=== PATIENT | female | born 1975 | race Caucasian/White ===

== ENCOUNTER → 2017-08-30 | Outpatient (CLI) | payer BC ==
[2006-07-26 07:13] VITALS: PULSE 72; TEMP 97.3
== END ==
LOC: MC.RAD 13:07
DX: Z12.31 Encounter for screening mammogram for malignant neoplasm of breast (principal); N63.11 Unspecified lump in the right breast, upper outer quadrant

== ENCOUNTER → 2017-09-09 | Outpatient (CLI) | payer BC ==
[2006-07-26 07:13] VITALS: PULSE 72; TEMP 97.3
== END ==
LOC: MC.RAD 09:30
DX: N63.11 Unspecified lump in the right breast, upper outer quadrant (principal)

== ENCOUNTER → 2017-09-21 | Outpatient (CLI) | payer BC ==
[2006-07-26 07:13] VITALS: PULSE 72; TEMP 97.3
== END ==
LOC: MC.RAD 09:48
DX: N63.11 Unspecified lump in the right breast, upper outer quadrant (principal)

== ENCOUNTER 2022-09-29 06:47 | Day surgery (SDC) | payer BC ==
[~2022-09-29] VITALS: Ht 160 cm; Wt 69.4 kg
[2022-09-29 07:34] VITALS: BP 87/51; PULSE 57; TEMP 97.5
[2022-09-29] MEDS ORDERED: HCTZ 25MG TAB25 MG PO (07:39)
[2022-09-29] MEDS ORDERED: ONE-A-DAY ESSE1 EACH PO (07:39)
[2022-09-29] MEDS ORDERED: OSCAL 500 TAB500 MG PO (07:40)
[2022-09-29 09:29] LABS: ALBUMIN 3.4 gm/dL (3.5-5.0); BILIRUBIN,TOTAL 0.9 mg/dL (0.2-1.2); CALCIUM 8.5 mg/dL (8.4-10.2); CREATININE, serum 0.67 mg/dL (0.57-1.11); POTASSIUM 3.5 mmol/L (3.5-4.5); TOTAL PROTEIN 5.3 gm/dL (6.2-8.1)
[2022-09-29] MEDS ORDERED: NORCO 325 MG-51 TAB PO (10:04)
[2022-09-29 10:45] VITALS: BP 100/63; PULSE 63; TEMP 97.1
--- NOTE | 2022-09-29 10:45 | NUR ---
1045 PATIENT RETURNS TO ROOM 2 VIA CART. PATIENT IS ALERT AND ORIENTED. PATIENT IS IN ROOM. RESPIRATIONS EVEN AND UNLABORED. PATIENT IS C/O 3/10 PAIN TO ABDOMEN. 4 LAP SITES TO ABDOMEN COVERED BY BANDAIDS, ALL CDI. VITAL SIGNS OBTAINED. PATIENT DOES NOT WANT ANYTHING TO EAT AT THIS TIME. 1105 PATIENT STATES THAT HER PAIN IS STARTING TO INCREASE TO A 5/10 AND ASKED IF SHE COULD HAVE PAIN MEDICATION. 1109 THIS NURSE GAVE PATIENT PRN PAIN MEDICATION WELL PRN IV ZOFRAN. 1135 PATIENT STATES THAT HER PAIN IS BACK DOWN TO A 2/10 AND IS MUCH MORE TOLERABLE. 1140 THIS NURSE WENT OVER DISCHARGE INSTRUCTIONS WITH PATIENT AND PATIENT . BOTH VERBALIZED UNDERSTANDING. 1145 DC IV FROM RIGHT HAND WITH NO COMPLICATIONS. 1155 PATIENT DISCHARGES FROM UNIT VIA WHEELCHAIR.
[2022-09-29 11:00] VITALS: BP 91/50; PULSE 61
[2022-09-29 11:15] VITALS: BP 97/57; PULSE 62
[2022-09-29 13:18] VITALS: BP 98/59; PULSE 60; TEMP 98.9
== END 2022-09-29 11:55 | disposition home or self-care (01) ==
LOC: SDCO 06:47
PROVIDERS: Surgery
DX: K80.10 Calculus of gallbladder with chronic cholecystitis without obstruction (principal); K66.0 Peritoneal adhesions (postprocedural) (postinfection); Z98.84 Bariatric surgery status; Z87.891 Personal history of nicotine dependence
CPT/HCPCS: J0330; J0690; J1100; J1170; J2250; J2405; J2704; J3010; J7120